=== PATIENT | female | born 1960 | race Caucasian/White ===

== ENCOUNTER 2018-05-25 12:40 | Inpatient (IN) | payer BC ==
[~2018-05-25] VITALS: Ht 152.4 cm; Wt 44.5 kg
[~2018-05-25 12:40] MED LIST: BENICAR40 MG PO
[2018-05-25 12:54] VITALS: BP 162/91
[2018-05-25] MEDS ORDERED: TRAMADOL 50 MG50 MG PO (12:58)
[2018-05-25 13:16] LABS: ABSOLUTE BASOPHILS 0.1 thou/uL (0.0-0.2); ABSOLUTE LYMPHOCYTES 1.1 thou/uL (0.8-5.3); ABSOLUTE MONOCYTES 0.3 thou/uL (0.0-1.2); ABSOLUTE NEUTROPHILS 2.4 thou/uL (1.6-8.1); BASOPHILS 1.6 %; EOSINOPHILS 0.7 %; HEMATOCRIT 41.9 % (37.0-47.0); HEMOGLOBIN 14.3 gm/dL (12.0-15.0); LYMPHOCYTES 28.3 %; MCH 30.8 pg (26.0-34.0); MCHC 34.2 g/dL (28.0-37.0); MCV 90.1 fL (80.0-100.0); MONOCYTES 8.8 %; MPV 8.9 fl. (7.2-11.1); NUCLEATED RBCS 0 /100WBC; PLATELET COUNT* 215 thou/uL (150-400); POLYS 60.6 %; RBC 4.65 mil/uL (4.20-5.00); RDW-CV 13.2 % (10.5-14.5); WBC 3.9 thou/uL (4.0-11.0)
[2018-05-25 13:35] LABS: URINE BILIRUBIN NEGATIVE (Negative); URINE BLOOD TRACE (Negative); URINE CLARITY CLEAR; URINE COLOR YELLOW; URINE GLUCOSE-RANDOM NEGATIVE (Negative); URINE KETONES NEGATIVE (Negative); URINE LEUKOCYTES-REFLEX 1+ (Negative); URINE NITRITE-REFLEX NEGATIVE (Negative); URINE PROTEIN NEGATIVE (Negative); URINE UROBILINOGEN 0.2 E.U./dl (0.2-1.0)
[2018-05-25 13:36] LABS: ALBUMIN 3.8 g/dL (3.4-5.0); ALKALINE PHOSPHATASE 66 U/L (46-116); ANION GAP 5 mmol/L (7-16); BUN 11 mg/dL (7-18); CALCIUM 8.7 mg/dL (8.5-10.1); CHLORIDE 104 mmol/L (98-107); CO2 31 mmol/L (21-32); GLUCOSE 101 mg/dL (70-99); POTASSIUM 3.9 mmol/L (3.5-5.1); SGOT 18 U/L (15-37); SGPT 17 U/L (30-65); SODIUM 140 mmol/L (136-145); TOTAL BILIRUBIN 0.3 mg/dL (<0.1-1.0); TOTAL PROTEIN 7.5 g/dL (6.4-8.2); TROPONIN-I LEVEL <0.06 ng/mL (<0.06)
[2018-05-25 13:43] LABS: SQUAMOUS 4-10 Moderate /LPF (0-3); URINE WBC-REFLEX 6-15 Few /HPF (0-5)
[2018-05-25 13:44] LABS: BACTERIA-REFLEX None Seen /HPF (None Seen); CASTS None Seen /LPF (None Seen); CRYSTALS None Seen /LPF (None Seen); MUCUS >6 Heavy strn/LPF (None Seen); URINE RBC None Seen /HPF (0-2)
--- NOTE | 2018-05-25 15:05 | NUR ---
ANGELIQUE NOTIFIED UPON PT RETURN FROM CT. PT CONNECTED TO MONITOR
[2018-05-25 17:33] VITALS: BP 140/82
--- NOTE | 2018-05-25 18:27 | NUR ---
PT ADMITTED TO UNIT AROUND 1800 PT IS ALERT AND ORIENTED X 4 PT DENIES PAIN OR SOA ON RA, PT IS UP AD PHILIP PT IS NOT A FALL RISK, PT IS SR ON THE MONITOR, PT HAS COLOSTOMY TAKES CARE OF SELF, PT HAS FLUIDS RUNNING, WILL CONTINUE TO MONITOR
[2018-05-25 18:29] VITALS: BP 152/94
[2018-05-26] VITALS (8 sets, daily range): BP systolic 100–142; BP diastolic 57–86
--- NOTE | 2018-05-26 07:10 | NUR ---
VITALS WNL. SEE MAR. SEE CHARTING. HOURLY ROUNDING FOR SAFETY.
--- NOTE | 2018-05-26 11:53 | NUR ---
MET WITH PT TO DISCUSS HOME SITUATION/DC PLANNING. PT LIVES WITH SPOUSE, WORKS OUTSIDE THE HOME. PT IS INDEPENDENT AND USES NO EQUIPMENT. PLANS TO RETURN HOME AT DC. DENIES NEEDS
--- NOTE | 2018-05-26 14:04 | 2DMMODE ---
[place] [address] 2 D/M-MODE ECHOCARDIOGRAM Name: JOSÉ HALL Room: [address] [place] [facility] [place] [id number] Admission: 05/25/18 Attend Phys: Gallo Ko Discharge: Date of : 58 Date of Service: 05/26/18 1404 Report #: [id number] THIS REPORT FOR: //name// APPROVED REPORT Study performed: 05/26/2018 09:33:49 EXAM: Comprehensive 2D, Doppler, and color-flow Echocardiogram Patient Location: In-Patient Room #: [facility] Status: routine BSA: 1.36 HR: 83 bpm BP: 118/70 mmHg Rhythm: NSR Other Information Study Quality: Good Indications Chest Pain near syncope 2D Dimensions IVSd: 9.84 (7-11mm) LVOT Diam: 18.31 (18-24mm) LVDd: 36.33 mm PWd: 7.70 (7-11mm) Ascending Ao: 31.11 (22-36mm) LVDs: 22.01 (25-40mm) Aortic Root: 26.58 mm Volumes Left Atrial Volume (Systole) LA ESV Index: 21.90 mL/m2 Aortic Valve AoV Peak Warner.: 1.21 m/s AO Peak Gr.: 5.90 mmHg LVOT Max P.33 mmHg AO Mean Gr.: 3.04 mmHg LVOT Mean P.38 mmHg LVOT Max V: 0.76 m/s AO V2 VTI: 26.29 cm LVOT Mean V: 0.57 m/s NICK (VTI): 1.69 cm2 LVOT V1 VTI: 16.90 cm Mitral Valve E/A Ratio: 1.23 MV Decel. Time: 166.06 [place] [address] 2 D/M-MODE ECHOCARDIOGRAM Name: JOSÉ HALL Room: [address] IN .R.#: [id number] Admission: 05/25/18 Attend Phys: Gallo Ko Discharge: Date of : 58 Date of Service: 05/26/18 1404 Report #: [id number] MV E Max Warner.: 0.70 m/s MV PHT: 48.16 ms MVA (PHT): 4.57 cm2 TDI E/Lateral E': 5.38 E/Medial E': 6.36 Medial E' Warner.: 0.11 m/s Lateral E' Warner.: 0.13 m/s Pulmonary Valve PV Peak Warner.: 0.64 m/s PV Peak Gr.: 1.65 mmHg Tricuspid Valve RAP Estimate: 5.00 mmHg TR Peak Gr.: 15.38 mmHg RVSP: 20.00 mmHg PA Pressure: 20.00 mmHg Left Ventricle The left ventricle is normal size. There is normal LV segmental wall motion. There is normal left ventricular wall thickness. Left ventricular systolic function is normal. The left ventricular ejection fraction is within the normal range. LVEF is 60%. The left ventricular diastolic function is normal. Right Ventricle The right ventricle is normal size. The right ventricular systolic function is normal. Atria The left atrium size is normal. The right atrium size is normal Aortic Valve Mild aortic valve sclerosis. No aortic regurgitation is present. There is no aortic valvular stenosis. Mitral Valve The mitral valve is normal in structure. There is no mitral valve regurgitation noted. No evidence of mitral valve stenosis. Tricuspid Valve The tricuspid valve is normal in structure. Mild tricuspid regurgitation. No pulmonary hypertension. Pulmonic Valve The pulmonary valve is normal in [place] [address] 2 D/M-MODE ECHOCARDIOGRAM Name: JOSÉ HALL Room: [address] IN [facility] [place]#: [id number] Admission: 05/25/18 Attend Phys: Gallo Ko Discharge: Date of : 58 Date of Service: 05/26/18 1404 Report #: [id number] regurgitation. Great Vessels The aortic root is normal in size. IVC is normal in size and collapses >50% with inspiration. Pericardium There is no pericardial effusion. <Conclusion> The left ventricle is normal size. There is normal left ventricular wall thickness. Left ventricular systolic function is normal. The left ventricular ejection fraction is within the normal range. LVEF is 60%. The left ventricular diastolic function is normal. The right ventricle is normal size. The left atrium size is normal. Mild aortic valve sclerosis. No aortic regurgitation is present. There is no aortic valvular stenosis. The mitral valve is normal in structure. There is no mitral valve regurgitation noted. The tricuspid valve is normal in structure. Mild tricuspid regurgitation. No pulmonary hypertension. IVC is normal in size and collapses >50% with inspiration. There is no pericardial effusion. There is normal LV segmental wall motion. <ELECTRONICALLY SIGNED> By: Tony Snell MD, FACC 05/26/18 1404 1404 1404 Tony Snell MD, FACC /INF
--- NOTE | 2018-05-26 14:31 | EKG ---
[place] [address] ELECTROCARDIOGRAM REPORT Name: RAFAELJOSÉ Victor M Room: [address] ADM IN .R.#: [id number] Admission: 05/25/18 Attend Phys: Yakov Rodgers Discharge: Date of : 58 Report #: [id number] THIS REPORT FOR: //name// [facility] ED Test Date: 2018-05-25 Test Time: 12:52:28 Pat Name: JOSÉ HALL Department: Room: [facility] Gender: F Cash Management Clerk: Dick GOOD RN : 1960 Requested By: Kayley Sky Order Number: [id number] MD: Tony Snell Measurements Intervals [place] Rate: 82 P: 81 WI: 127 QRS: 85 QRSD: 84 T: 67 QT: 373 QTc: 436 Interpretive Statements Sinus rhythm Nonspecific T abnrm, anterolateral leads Compared to ECG 04/09/2016 22:38:52 No significant changes Electronically Signed On 05-26-2018 14:31:02 CDT by Tony Snell [email or web address] <ELECTRONICALLY SIGNED> By: Tony Snell MD, [facility] 05/26/18 1431 1252 1252 Tony Snell MD, [facility] /EPI
--- NOTE | 2018-05-26 17:41 | NUR ---
ASSUMED PT CARE AT 0700 PT IS ALERT AND ORIENTED X 4 PT DENIES PAIN OR SOA ON RA, PT IS UP AD PHILIP, PT IS SR ON THE MONITOR, PT WILL BE NPO AT MIDNIGHT FOR STRESS TEST TOMORROW, PT HAS COLOSTOMY CARES FOR SELF, WILL CONTINUE TO MONITOR
[2018-05-27 00:28] VITALS: BP 127/71
[2018-05-27 04:10] VITALS: BP 145/75
--- NOTE | 2018-05-27 08:05 | NUR ---
ASSUMED PT CARE AT 1930. ASSESSMENT COMPLETED CHARTED. ABLE TO MAKE NEEDS KNOWN. UP AD PHILIP. IVF RUNNING PER P.O. PT C/O MILD PAIN ON SHOULDER, ARM, AND NECK AND REFUSED PAIN MEDICATIONS FOR IT. HAS BEEN NPO SINCE MIDNIGHT FOR STRESS TEST TODAY. PT RESTING IN BED COMFORTABLY. WILL CONTINUE TO MONITOR.
[2018-05-27] MEDS ORDERED: CEFUROXIME250 MG PO (10:05)
[2018-05-27] MEDS ORDERED: ASPIRIN81 M2 PO (10:05)
[2018-05-27 14:08] VITALS: BP 150/83
--- NOTE | 2018-05-27 15:01 | NUR ---
ASSUMED PT CARE AT 0700 PT IS ALERT AND ORIENTED X 4 PT DENIES PAIN OR SOA ON RA, PT IS UP AD PHILIP PT IS NOT A FALL RISK PT IS SR ON THE MONITOR, PT WENT FOR STRESS TEST AWAITING CARDIOLOGY TO READ TEST AND CLEAR PT FOR DISCHARGE, WILL CONTINUE TO MONITOR
[2018-05-27 16:32] VITALS: BP 144/91
--- NOTE | 2018-05-27 17:06 | CARDNUC ---
[place] [address] CARDIAC NUCLEAR IMAGING REPORT Name: RAFAELJOSÉ J Room: [address] IN [facility]#: [id number] Admission: 05/25/18 Attend Phys: Gallo Ko Discharge: Date of : 58 Date of Service: 05/27/18 1705 Report #: [id number] THIS REPORT FOR: //name// APPROVED REPORT Study performed: 05/27/2018 09:51:33 Exam: Nuclear Stress Test Indication: Fatigue, dizzyness, near syncope, diaphoesis Patient Location: Out-Patient Stress Tech: Karlene Keane Stress Nurse: Christine Mercado RN NM Tech:KATIA Jose Ht: 5 ft 0 in Wt: 97 lbs BSA: 1.37 m2 BMI: 18.94 Medical History Medical History: HTN Medications: cozaar Allergies: vicodin, sulfa Cardiac Risk Factors: age, htn, family hx Exercise History: Indeterminate Stress Test Details Stress Test: Pharmacologic stress testing performed using 0.4 mg of regadenoson per 5 mL given IV over 10 seconds. Reason for pharmacologic stress test: physical limitation. HR Resting HR: 85 bpm Max Heart Rate (APMHR): 161 bpm Max HR Achieved: 162 bpm Target HR (85% APMHR): 136 bpm % of APMHR: 100 Recovery HR: 92 bpm BP Resting BP: 161/104 mmHg Max BP: 150/107 mmHg ECG Resting ECG: Sinus Rhythm Stress ECG: Sinus Tachycardia ST Change: Horizontal ST depression Maximum ST Deviation: 1.5 mm Arrhythmia: None [address] [address] CARDIAC NUCLEAR IMAGING REPORT Name: JOSÉ HALL Room: [address] IN [facility]#: [id number] Admission: 05/25/18 Attend Phys: Gallo Ko Discharge: Date of : 58 Date of Service: 05/27/18 1705 Report #: [id number] Recovery ECG: Sinus Rhythm Recovery ST Change: Horizontal ST depression Recovery ST Deviation: 1.5 mm Recovery Arrhythmia: None Clinical Reason for Termination: Completed protocol Exercise duration: 0 min sec Exercise capacity: 1 METs The patient tolerated Lexiscan infusion without significant symptoms. Nurse Comments caffeine 60mg ivp given for tachycardia. pt gait unsteady, unable to walk on treadmill Stress ECG Conclusion The baseline 12-lead EKG shows sinus rhythm. EKGs obtained during and post Lexiscan infusion show sinus rhythm and sinus tachycardia. There was 1.[address] segment depression noted during Lexiscan infusion and recovery. There were no stress-induced arrhythmias. NM EXAM: Myocardial Perfusion REST/STRESS Imaging Protocol: Rest Tc-99m/Stress Tc-99m 1 day Resting Data Rest SPECT myocardial perfusion imaging was performed in supine position 30 minutes following the intravenous injection of 10.9 mCi of Tc-99m Sestamibi. Time of rest injection: 0800 Date: 05/27/2018 The images were gated to evaluate regional wall motion and calculate left ventricular ejection fraction. Administration Route: IV Pharmacologic Stress Pharmacologic stress test was performed by injecting Regadenoson 0.4 mg IV push followed by the intravenous injection of 33.0 mCi of Tc-99m Sestamibi. Time of stress injection: 09 Date: 05/27/2018 Administration Route: IV Gated Stress SPECT was performed 40 minutes after stress injection. The images were gated to evaluate regional wall motion and calculate left ventricular ejection fraction. Prone [place] [address] CARDIAC NUCLEAR IMAGING REPORT Name: OJSÉ HALL Room: [address]#: [id number] Admission: 05/25/18 Attend Phys: Gallo Ko Discharge: Date of : 58 Date of Service: 05/27/18 1705 Report #: [id number] Study Quality Study: Good Artifact: No artifact Study Data At rest, the left ventricular ejection fraction was 62%.. Post stress, the left ventricular ejection was 57%.. TID = 1.02. Perfusion Normal left ventricular perfusion. Wall Motion Normal left ventricular wall motion. Nuclear Conclusion ECG Findings: equivocal Clinical Findings: negative for ischemia Nuclear Findings: negative for ischemia Exercise Capacity: not assessed Left Ventricular Function: normal Risk Study: low Myocardial perfusion images show no defect to suggest infarct or ischemia. Left ventricular systolic function is normal on gated studies. The horizontal ST segment depression noted on EKG are felt to be equivocal in light of nuclear medicine findings. This is a low risk study. <Conclusion> The baseline 12-lead EKG shows sinus rhythm. EKGs obtained during and post Lexiscan infusion show sinus rhythm and sinus tachycardia. There was 1.[address] segment depression noted during Lexiscan infusion and recovery. There were no stress-induced arrhythmias. <ELECTRONICALLY SIGNED> By: Aniceto Mejia MD, FACC 05/27/18 1705 04 04 Aniceto Mejia MD, FACC /INF
[2018-05-27 17:42] VITALS: BP 144/91
== END 2018-05-27 17:50 | disposition home or self-care (01) | DRG 392 ==
LOC: M.ERS 12:40 → M.TBA-ER 14:52 → M.2W 14:52
PROVIDERS: Physician Assistant; ADMIT Internal Medicine
DX: K21.9 Gastro-esophageal reflux disease without esophagitis (principal); I24.9 Acute ischemic heart disease, unspecified; N39.0 Urinary tract infection, site not specified; I10 Essential (primary) hypertension; I25.10 Atherosclerotic heart disease of native coronary artery without angina pectoris; Z93.3 Colostomy status; Z88.6 Allergy status to analgesic agent; Z88.2 Allergy status to sulfonamides; Z88.8 Allergy status to other drugs, medicaments and biological substances; Z79.82 Long term (current) use of aspirin; Z79.899 Other long term (current) drug therapy